=== PATIENT | female | born 2000 | race Caucasian/White ===

== ENCOUNTER 2018-12-29 00:50 | Emergency (ER) | payer OTHER ==
[~2018-12-29] VITALS: Ht 152.4 cm; Wt 52.2 kg
[2018-12-29 00:56] VITALS: Ht 152.4 cm; Wt 52.2 kg
[2018-12-29 01:42] LABS: BASOPHIL % 0.7 % (0-2); RED CELL DISTRIBUTION WIDTH 11.8 % (11.5-14.5)
[2018-12-29 01:48] LABS: CALCIUM 8.8 mg/dL (8.5-10.1); CARBON DIOXIDE 25.1 mmol/L (21-32); CHLORIDE SERUM 101 mmol/L (98-107); CREATININE SERUM 0.7 mg/dL (0.6-1.0); GFR1 > 60 mL/min; GLUCOSE SERUM 107 mg/dL (74-106); POTASSIUM SERUM 3.8 mmol/L (3.5-5.1); SODIUM SERUM 138 mmol/L (136-145)
[2018-12-29 01:49] LABS: PLATELET COUNT 290 x10^3mcL (130-400)
[2018-12-29 02:03] LABS: ALBUMIN 4.2 g/dL (3.4-5.0); ALKALINE PHOSPHATASE 56 U/L (46-116); ALT/SGPT 22 U/L (14-59); AST/SGOT 17 U/L (15-37); TOTAL PROTEIN, SERUM 7.7 g/dL (6.4-8.2)
[2018-12-29 02:19] LABS: AMPHETAMINE QUAL UR NONE DETECTED (See below)
[2018-12-29 02:46] LABS: UA SPECIFIC GRAVITY 1.015 (1.005-1.035); microscopic required? YES; urine erythrocyte NEGATIVE (NEGATIVE)
--- NOTE | 2018-12-29 10:00 | NUR ---
Packet faxed to Samantha at [facility] for review.
--- NOTE | 2018-12-29 10:07 | NUR ---
Packet faxed to Shelly at [facility].
--- NOTE | 2018-12-29 13:20 | NUR ---
Packet faxed Maximiliano at [facility] for review.
--- NOTE | 2018-12-29 13:24 | NUR ---
Called [facility], s/w It[facility]. No beds.
--- NOTE | 2018-12-29 14:03 | NUR ---
Packet faxed to Lizzie prieto [facility] for review.
[2018-12-29 17:03] VITALS: BP 119/64
== END 2018-12-29 17:03 ==
LOC: ED 00:50
PROVIDERS: Specialist
DX: F32.9 Major depressive disorder, single episode, unspecified (principal); T43.222A Poisoning by selective serotonin reuptake inhibitors, intentional self-harm, initial encounter; Y92.89 Other specified places as the place of occurrence of the external cause
CPT/HCPCS: 36415; G0480; Q0092

== ENCOUNTER 2019-04-03 23:11 | Emergency (ER) | payer OTHER ==
[~2019-04-03] VITALS: Ht 152.4 cm; Wt 56.7 kg
[2019-04-03 23:27] VITALS: Ht 152.4 cm; Wt 56.7 kg
[2019-04-04 03:22] VITALS: BP 127/92
== END 2019-04-04 03:22 | disposition home or self-care (01) ==
LOC: ED 23:11
DX: M54.5 Low back pain (principal); F32.9 Major depressive disorder, single episode, unspecified